=== PATIENT | female | born 1975 | race American Indian/Alaskan Native ===

== ENCOUNTER 2016-11-11 13:01 | Emergency (ER) | payer OTHER ==
[2016-11-11 13:55] VITALS: BP 133/83
[2016-11-11] MEDS ORDERED: MOTRIN PO ONE (16:54)
[2016-11-11] MEDS ORDERED: NORCO 5/325 PO ONE (16:54)
[2016-11-11] MEDS ORDERED: ZOFRAN ODT PO ONE (16:54)
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
--- NOTE | 2016-11-11 19:28 | XRay Report ---
FINAL REPORT EXAM: XR RIBS UNI W PA CHEST 3+V LT HISTORY: left sided chest wall pain TECHNIQUE: Frontal chest x-ray. 4 views of left ribs. PRIORS: None. FINDINGS: Cardiac and mediastinal silhouette within normal limits. Lungs are normally expanded, with mild superior retraction and atelectasis versus scarring projected over right suprahilar region. No focal consolidation or apparent pneumothorax. No obvious or displaced left rib fractures. IMPRESSION: 1. Findings which may represent right perihilar atelectasis versus scarring. Comparison with previous chest x-ray may help document stability. Otherwise, correlation with nonemergent CT chest may help in further evaluation, as clinically indicated. 2. No other acute findings.
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
== END 2016-11-11 19:03 | disposition home or self-care (01) ==
LOC: ED 13:01
DX: R07.89 Other chest pain (principal); M54.6 Pain in thoracic spine
CPT/HCPCS: 72040; 72072; 81025; 99284; Q0162

== ENCOUNTER 2018-07-06 09:06 | Emergency (ER) | payer OTHER ==
--- NOTE | 2018-07-06 10:19 | XRay Report ---
LEFT KNEE, 3 views: History: Pain. The bony architecture is intact without evidence of fracture or dislocation. A large joint effusion is identified on the lateral image. The remaining soft tissues are unremarkable. IMPRESSION: Large joint effusion. No bony abnormality is detected. If internal derangement is suspected, MRI left knee without contrast would provide the most information.
[2018-07-06] MEDS ORDERED: TORADOL IM ONE (10:41)
--- NOTE | 2018-07-06 10:44 | Emergency Department Report ---
ED Lower Extremity HPI - General Chief Complaint: Extremity Injury, Lower Stated Complaint: LFT KNEE PAIN Time Seen by Provider: 07/06/18 10:39 Source: patient Mode of arrival: Ambulatory Limitations: No Limitations - History of Present Illness Initial Comments: Patient is an obese 43-year-old had a fell approximately a month ago now coming in with left knee pain. She is ambulatory on admission. -: Gradual, week(s) Injury: Knee: Left Type of Injury: blunt Place: home Severity: mild Improves With: nothing Worsens With: movement Context: fall Associated Symptoms: swelling, ambulatory. denies: snap/pop sensation, numbness, tingling, unable to bear weight, able to partially bear weight - Related Data Previous Rx's Medication Instructions Recorded Last Taken Type Ibuprofen [Motrin] 800 mg PO Q8HR PRN #20 tablet 07/06/18 Unknown Rx traMADol [Ultram] 50 mg PO Q6HR PRN #10 tablet 07/06/18 Unknown Rx Allergies Allergy/AdvReac Type Severity Reaction Status Date / Time No Known Allergies Allergy Verified 07/06/18 09:11 ED Review of Systems ROS: Stated complaint: LFT KNEE PAIN Other details as noted in HPI Comment: All other systems reviewed and negative Musculoskeletal: as per HPI ED Past Medical Hx - Past Medical History Previous Medical History?: No - Surgical History Past Surgical History?: No - Social History Smoking Status: Never Smoker Substance Use Type: None - Medications Home Medications: Home Medications Medication Instructions Recorded Confirmed Last Taken Type Ibuprofen [Motrin] 800 mg PO Q8HR PRN #20 tablet 07/06/18 Unknown Rx traMADol [Ultram] 50 mg PO Q6HR PRN #10 tablet 07/06/18 Unknown Rx ED Physical Exam - General Limitations: No Limitations General appearance: alert - Head Head exam: Present: atraumatic, normocephalic - Eye Eye exam: Present: normal appearance, PERRL, EOMI - ENT ENT exam: Present: mucous membranes moist - Neck Neck exam: Present: normal inspection - Respiratory Respiratory exam: Present: normal lung sounds bilaterally - Cardiovascular Cardiovascular Exam: Present: regular rate - GI/Abdominal GI/Abdominal exam: Present: soft, normal bowel sounds - External exam: Present: normal external exam - Extremities Exam Extremities exam: Present: normal inspection, full ROM - Expanded Lower Extremity Exam Left Upper Leg exam: Present: normal inspection Knee exam: Present: swelling, effusion. Absent: tenderness, abrasion, laceration, ecchymosis, deformity, crepidus, dislocation, erythema Lower Leg exam: Present: normal inspection ED Course Vital Signs 07/06/18 07/06/18 09:29 11:11 Temperature 98.4 F Pulse Rate 61 64 Respiratory 18 18 Rate Blood Pressure 155/101 150/91 [Right] O2 Sat by Pulse 100 100 Oximetry ED Lower Extremity MDM - Radiology Data Radiology results: report reviewed, image reviewed - Medical Decision Making XRAY NEG MORBIDLY OBESE EFFUSION DIFFICULT TO FEEL ON EXAM KNEE GEN SWELLING IMMOBILIZED AND CRUTCHES ORTHO FOLLOW UP TORADOL IM BP ELEVATED PT INSTRUCTED TO MONITOR, FOLLOW DIET AND SEE PCP NO CP NO SOB NO HEADACHE NO FOCAL NEURO DEF. DC HOME WITH ORTHO FOLLOW UP Vital Signs 07/06/18 09:29 Temperature 98.4 F Pulse Rate 61 Respiratory 18 Rate Blood Pressure 155/101 [Right] O2 Sat by Pulse 100 Oximetry Vital Signs 07/06/18 07/06/18 09:29 11:11 Temperature 98.4 F Pulse Rate 61 64 Respiratory 18 18 Rate Blood Pressure 155/101 150/91 [Right] O2 Sat by Pulse 100 100 Oximetry - Differential Diagnosis RO FRACTURE Critical care attestation.: If time is entered above; I have spent that time in minutes in the direct care of this critically ill patient, excluding procedure time. ED Disposition Clinical Impression: Knee pain, Knee effusion, Fall, Elevated blood pressure reading Disposition: DC- TO HOME OR SELFCARE Is pt being admited?: No Does the pt Need Aspirin: No Condition: Stable Instructions: Knee Effusion (ED) Additional Instructions: med as ordered today diet as tolerated activity as tolerated hydrate well with water ICE REST ELEVATE IMMOBILIZE DURING DAY CRUTCHES FOLLOW UP ORTHO ALANA MONITOR BLOOD PRESSURE FOLLOW UP PCP IF REMAINS HIGH REFERRAL BELOW Prescriptions: Ibuprofen [Motrin] 800 mg PO Q8HR PRN #20 tablet PRN Reason: Pain , Severe (7-10) traMADol [Ultram] 50 mg PO Q6HR PRN #10 tablet PRN Reason: Pain Referrals: KERON DODD MD [Staff Physician] - 3-5 Days [facility] [Outside] - 3-5 Days Time of Disposition: 10:42
[2018-07-06 11:12] VITALS: BP 150/91
== END 2018-07-06 11:11 | disposition home or self-care (01) ==
LOC: ED 09:06
DX: M25.462 Effusion, left knee (principal); R03.0 Elevated blood-pressure reading, without diagnosis of hypertension; W19.XXXA Unspecified fall, initial encounter; Y93.89 Activity, other specified; Y92.89 Other specified places as the place of occurrence of the external cause; Y99.8 Other external cause status
CPT/HCPCS: 73562; 96372; 99283; J1885

== ENCOUNTER 2018-07-22 07:23 | Emergency (ER) | payer OTHER ==
[2018-07-22 07:31] VITALS: BP 141/91
[2018-07-22] MEDS ORDERED: ZOFRAN ODT PO ONE (09:19)
[2018-07-22] MEDS ORDERED: TYLENOL #3 PO ONE (09:19)
--- NOTE | 2018-07-22 09:24 | Emergency Department Report ---
ED CPR HPI - General Chief Complaint: Extremity Injury, Lower Stated Complaint: KNEE PAIN Time Seen by Provider: 07/22/18 08:43 Source: patient Mode of arrival: Ambulatory Limitations: No Limitations - Related Data Previous Rx's Medication Instructions Recorded Last Taken Type Ibuprofen [Motrin] 800 mg PO Q8HR PRN #20 tablet 07/06/18 Unknown Rx traMADol [Ultram] 50 mg PO Q6HR PRN #10 tablet 07/06/18 Unknown Rx Acetaminophen/Codeine [Tylenol 1 tab PO Q6H PRN #15 tab 07/22/18 Unknown Rx /Codeine # 3 tab] Acetaminophen/Codeine [Tylenol 1 tab PO Q6H PRN #15 tab 07/22/18 Unknown Rx /Codeine # 3 tab] Allergies Allergy/AdvReac Type Severity Reaction Status Date / Time No Known Allergies Allergy Verified 07/22/18 07:24 ED Review of Systems ROS: Stated complaint: KNEE PAIN Other details as noted in HPI ED Past Medical Hx - Past Medical History Previous Medical History?: No - Surgical History Past Surgical History?: No - Social History Smoking Status: Never Smoker Substance Use Type: None - Medications Home Medications: Home Medications Medication Instructions Recorded Confirmed Last Taken Type Ibuprofen [Motrin] 800 mg PO Q8HR PRN #20 tablet 07/06/18 Unknown Rx traMADol [Ultram] 50 mg PO Q6HR PRN #10 tablet 07/06/18 Unknown Rx Acetaminophen/Codeine [Tylenol 1 tab PO Q6H PRN #15 tab 07/22/18 Unknown Rx /Codeine # 3 tab] Acetaminophen/Codeine [Tylenol 1 tab PO Q6H PRN #15 tab 07/22/18 Unknown Rx /Codeine # 3 tab] ED Physical Exam - General Limitations: No Limitations ED Course Vital Signs 07/22/18 07:29 Temperature 98.2 F Pulse Rate 81 Respiratory 18 Rate Blood Pressure 141/91 O2 Sat by Pulse 99 Oximetry Critical care attestation.: If time is entered above; I have spent that time in minutes in the direct care of this critically ill patient, excluding procedure time. ED Disposition Clinical Impression: Knee pain, bilateral Disposition: DC-01 TO HOME OR SELFCARE Is pt being admited?: No Does the pt Need Aspirin: No Condition: Stable Instructions: Knee Pain (ED) Referrals: [facility] [Other] - 3-5 Days Forms: Work/School Release Form(ED) Time of Disposition: 09:22
--- NOTE | 2018-07-22 09:27 | Emergency Department Report ---
ED General Adult HPI - General Chief complaint: Extremity Injury, Lower Stated complaint: KNEE PAIN Time Seen by Provider: 07/22/18 08:43 Source: patient Mode of arrival: Ambulatory Limitations: No Limitations - History of Present Illness Initial comments: Patient presents to the emergency department with a chief complaint of continued knee pain status post a fall in June. Patient denies any new injuries and states the medication she has a home is not working -: Gradual Location: lower extremity Radiation: non-radiation Severity scale (0 -10): 6 Quality: aching Consistency: constant Improves with: rest Worsens with: movement Associated Symptoms: denies other symptoms Treatments Prior to Arrival: none - Related Data Previous Rx's Medication Instructions Recorded Last Taken Type Ibuprofen [Motrin] 800 mg PO Q8HR PRN #20 tablet 07/06/18 Unknown Rx traMADol [Ultram] 50 mg PO Q6HR PRN #10 tablet 07/06/18 Unknown Rx Acetaminophen/Codeine [Tylenol 1 tab PO Q6H PRN #15 tab 07/22/18 Unknown Rx /Codeine # 3 tab] Acetaminophen/Codeine [Tylenol 1 tab PO Q6H PRN #15 tab 07/22/18 Unknown Rx /Codeine # 3 tab] Allergies Allergy/AdvReac Type Severity Reaction Status Date / Time No Known Allergies Allergy Verified 07/22/18 07:24 ED Review of Systems ROS: Stated complaint: KNEE PAIN Other details as noted in HPI Constitutional: denies: chills, fever Eyes: denies: eye pain, eye discharge, vision change ENT: denies: ear pain, throat pain Respiratory: denies: cough, shortness of breath, wheezing Cardiovascular: denies: chest pain, palpitations Endocrine: no symptoms reported Gastrointestinal: denies: abdominal pain, nausea, diarrhea Genitourinary: denies: urgency, dysuria, discharge Musculoskeletal: denies: back pain, joint swelling, arthralgia Skin: denies: rash, lesions Neurological: denies: headache, weakness, paresthesias Psychiatric: denies: anxiety, depression Hematological/Lymphatic: denies: easy bleeding, easy bruising ED Past Medical Hx - Past Medical History Previous Medical History?: No - Surgical History Past Surgical History?: No - Social History Smoking Status: Never Smoker Substance Use Type: None - Medications Home Medications: Home Medications Medication Instructions Recorded Confirmed Last Taken Type Ibuprofen [Motrin] 800 mg PO Q8HR PRN #20 tablet 07/06/18 Unknown Rx traMADol [Ultram] 50 mg PO Q6HR PRN #10 tablet 07/06/18 Unknown Rx Acetaminophen/Codeine [Tylenol 1 tab PO Q6H PRN #15 tab 07/22/18 Unknown Rx /Codeine # 3 tab] Acetaminophen/Codeine [Tylenol 1 tab PO Q6H PRN #15 tab 07/22/18 Unknown Rx /Codeine # 3 tab] ED Physical Exam - General Limitations: No Limitations General appearance: alert, in no apparent distress - Head Head exam: Present: atraumatic, normocephalic - Eye Eye exam: Present: normal appearance - ENT ENT exam: Present: mucous membranes moist - Neck Neck exam: Present: normal inspection - Respiratory Respiratory exam: Present: normal lung sounds bilaterally. Absent: respiratory distress - Cardiovascular Cardiovascular Exam: Present: regular rate, normal rhythm. Absent: gallop - Extremities Exam Extremities exam: Present: normal inspection - Back Exam Back exam: Present: other (bilateral swelling to the pre-patellar region) - Neurological Exam Neurological exam: Present: alert, oriented X3, CN II-XII intact. Absent: motor sensory deficit - Psychiatric Psychiatric exam: Present: normal affect, normal mood - Skin Skin exam: Present: warm, dry, intact, normal color. Absent: rash ED Course Vital Signs 07/22/18 07:29 Temperature 98.2 F Pulse Rate 81 Respiratory 18 Rate Blood Pressure 141/91 O2 Sat by Pulse 99 Oximetry ED Medical Decision Making - Medical Decision Making Plan of care discussed with patient Critical care attestation.: If time is entered above; I have spent that time in minutes in the direct care of this critically ill patient, excluding procedure time. ED Disposition Clinical Impression: Knee pain, bilateral Disposition: DC-01 TO HOME OR SELFCARE Is pt being admited?: No Does the pt Need Aspirin: No Condition: Stable Instructions: Knee Pain (ED) Prescriptions: Acetaminophen/Codeine [Tylenol /Codeine # 3 tab] 1 tab PO Q6H PRN #15 tab PRN Reason: pain Acetaminophen/Codeine [Tylenol /Codeine # 3 tab] 1 tab PO Q6H PRN #15 tab PRN Reason: pain Referrals: [facility] [Other] - 3-5 Days Forms: Work/School Release Form(ED) Time of Disposition: 09:27
== END 2018-07-22 09:43 | disposition home or self-care (01) ==
LOC: ED 07:23
DX: M25.561 Pain in right knee (principal); M25.562 Pain in left knee
CPT/HCPCS: 99282; Q0162

== ENCOUNTER 2020-09-22 11:22 | Emergency (ER) | payer SELFPAY ==
--- NOTE | 2020-09-22 12:17 | Emergency Department Report ---
Stated Complaint: SIDE AND KNEE PAIN Time Seen by Provider: 09/22/20 12:09 - HPI History of Present Illness: Chief complaint: Chills cough sore throat HPI: Is a 45-year-old female who received her second dose of COVID-19 vaccination 8 days ago. 2 days ago she developed nasal congestion sore throat cough. SHe has poor appetite. On exam she appears well stable vital signs saturation 90% on room air clear breath sounds. Patient currently does not have a life or limb threatening condition which needs further treatment. Recommend [id number] supportive therapy. - Exam Vital Signs: Vital Signs 09/22/20 11:40 Temperature 98.9 F Pulse Rate 68 Respiratory 18 Rate Blood Pressure 150/94 O2 Sat by Pulse 96 Oximetry MSE screening note: Focused history and physical exam performed. Due to findings the following was ordered: ED Disposition for MSE Clinical Impression: Viral syndrome Disposition: DC-01 TO HOME OR SELFCARE Condition: Stable Instructions: Viral Illness, Adult
[2020-09-22 12:57] VITALS: BP 133/88
== END 2020-09-22 12:56 | disposition home or self-care (01) ==
LOC: ED 11:22
DX: B34.9 Viral infection, unspecified (principal)
CPT/HCPCS: 99282

== ENCOUNTER 2020-11-03 03:29 | Emergency (ER) | payer SELFPAY ==
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
[2020-11-03 07:43] VITALS: BP 173/99
== END 2020-11-03 07:45 | disposition home or self-care (01) ==
LOC: ED 03:29
DX: S29.012A Strain of muscle and tendon of back wall of thorax, initial encounter (principal); Z79.899 Other long term (current) drug therapy; V49.49XA Driver injured in collision with other motor vehicles in traffic accident, initial encounter; Y92.410 Unspecified street and highway as the place of occurrence of the external cause; Y93.89 Activity, other specified; Y99.8 Other external cause status
CPT/HCPCS: 99282